=== PATIENT | female | born 1930 | race Caucasian/White ===

== ENCOUNTER 2016-08-24 19:05 | Emergency (ER) | payer MEDICARE ==
[~2016-08-24] VITALS: Ht 167.6 cm; Wt 110.0 kg
[~2016-08-24 19:05] MED LIST: ACET-2178 PO; ASPI-1035 PO; BISA-81 PO; DICL100G5 TP; DILT180C3 PO; DOCU-150 PO; DONE5TAB33 PO; LEVO100T9 PO; LEVO500T15 PO; LOSA50TA20 PO; MAGN400C PO; MEMA1CAP MT; MULT-348 PO; OMEP20CA10 PO; SENN1TAB35 PO; TRAM50TA3 PO; ZOLP5TAB8 PO
[2016-08-24 19:50] VITALS: BP 143/67
== END 2016-08-24 21:20 | disposition home or self-care (01) ==
LOC: ER 19:07
DX: I16.0 Hypertensive urgency (principal); F03.90 Unspecified dementia, unspecified severity, without behavioral disturbance, psychotic disturbance, mood disturbance, and anxiety; E03.9 Hypothyroidism, unspecified
CPT/HCPCS: 99283